=== PATIENT | male | born 1965 | race Caucasian/White ===

== ENCOUNTER 2017-08-04 04:27 | Inpatient (IN) ==
[2017-08-04] MEDS ORDERED: NALOXONE 0.4 MG/ML VIAL IV PRN (04:40)
[2017-08-04] MEDS ORDERED: NALOXONE 0.4 MG/ML VIAL ONE (04:40)
[2017-08-04] MEDS ORDERED: SODIUM CHLORIDE 0.9% 1,000 ML IV STA (04:40)
[2017-08-04] MEDS ORDERED: FLUMAZENIL 0.5 MG/5 ML VIAL IV ONE (04:45)
[2017-08-04] MEDS ORDERED: NALOXONE 0.4 MG/ML VIAL IV STA ×2 (04:47→04:48)
[2017-08-04] MEDS ORDERED: FLUMAZENIL 1 MG/10 ML VIAL IV STA (04:47)
[2017-08-04 05:41] LABS: Basophils # 0.1 10*3/uL (0.0-0.2); Basophils % 0.2 % (0.0-0.8); Eosinophils # 0.1 10*3/uL (0.0-0.87); Eosinophils % 0.2 % (0.00-10.9); Hematocrit 43.9 VOL% (42.0-52.0); Hemoglobin 14.5 GM/DL (14.0-18.0); Immature Granulocytes Absolute 0.24 #; Lymphocytes # 1.9 10*3/uL (1.4-4.0); Lymphocytes % 7.7 % (21.2-54.2); Mean Corpuscular Hemoglobin 28 PG (27-34); Mean Corpuscular Volume 85.1 FL (87-102); Mean Platelet Volume 11.2 FL (9.6-12.0); Monocytes # 1.2 10*3/uL (0.11-0.8); Monocytes % 5.1 % (1.7-12.7); Neutrophils # 20.8 10*3/uL (1.4-7.4); Neutrophils % 85.8 % (38.7-73.9); Platelet Count 297 T/CUMM (130-400); Red Blood Count 5.16 MC/CUMM (3.8-5.5); Red Cell Distribution Width 13.2 % (9.3-17.3); White Blood Count 24.3 T/CUMM (4-12)
[2017-08-04 05:48] LABS: Albumin 3.4 G/DL (3.4-5.0); Bilirubin,Total 0.5 MG/DL (0.2-1.0); Calcium 8.5 MG/DL (8.5-10.1); Osmolality,Calculated 282.5 MOS/KG (273-304); Potassium 4.3 MMOL/L (3.5-5.1); Total Protein 7.1 G/DL (6.4-8.3)
[2017-08-04 06:40] LABS: VBG Base Excess -2.4 MEQ/L (0-4); VBG HCO3 22.4 MEQ/L (24-28); VBG Oxygen Saturation 98.6 %; VBG PCO2 50.2 MMHG (41-51); VBG PH 7.302
[2017-08-04 06:54] LABS: Amorphous Crystals,Urine Occasional /HPF (Few); Apearance,Urine Slightly Hazy (Clear); Bacteria,Urine Occasional /HPF (Few); Bilirubin,Urine Negative (Negative); Blood, Urine Small mg/dL (Negative); Glucose,Urine (UA) Negative (Negative); Hyaline Casts,Urine 12 /LPF (0-3); Ketones,Urine Negative (Negative); Mucus,Urine Occasional /LPF (Occasional); Nitrite,Urine Negative (Negative); Protein,Urine 30 MG/DL; RBC,Urine 2 /HPF (0-4); Squamous Epithelial Cell,Urine Occasional /HPF (0-10); Urine Color Yellow (Yellow); Urine Specific Gravity 1.018 (1.001-1.035); Urine Urobilinogen < 2.0 EU/DL (0.2-1.0); WBC,Urine 5 /HPF (0-6)
[2017-08-04 07:06] LABS: Barbiturates Screen,Urine Negative (Negative); Benzodiazepines Screen,Urine Negative (Negative); Cannabinoid Screen,Urine Negative (Negative); Opiate Screen,Urine Negative (Negative); Phencyclidine Screen,Urine Negative (Negative)
[2017-08-04] MEDS ORDERED: ACETAMINOPHEN 325 MG TABLET PO PRN (07:42)
[2017-08-04] MEDS ORDERED: ALBUTEROL 2.5 MG/3 ML NEB RESP TX PRN (07:42)
[2017-08-04] MEDS ORDERED: NICOTINE 21 MG/24 HR PATCH TRANSDERM PRN (07:42)
[2017-08-04 07:46] LABS: Hypochromasia Slight; Lymphocytes 8 % (20-55); Platelet Estimate Adequate; Segmented Neutrophils 88 % (50-85); Total Cells Counted 100
[2017-08-04] MEDS: LACTATED RINGERS 1,000 ML IV SCH ×2 (08:24→17:52)
[2017-08-04 08:35] LABS: ABG Base Excess -1.6 MMOL/L (-2.5-2.5); ABG Oxygen Saturation 96.1 % (95-100); ABG PCO2 45.7 MM HG (35-48); ABG PH 7.339 (7.35-7.45); ABG PO2 86.5 MM HG (80-95); ABG TCO2 21.3 MMOL/L (23-27); Allen Test Positive
[2017-08-04] MEDS ORDERED: ONDANSETRON 4 MG/2 ML VIAL IV PRN (08:35)
[2017-08-04] MEDS ORDERED: PANTOPRAZOLE 40 MG TABLET PO SCH (09:00)
[2017-08-04] MEDS ORDERED: ALBUTEROL/IPRATROPIUM 3 ML NEB RESP TX PRN (09:18)
[2017-08-04] MEDS ORDERED: cefTRIAXone 1,000 MG in SODIUM CHLORIDE 0.9% 100 ML IV SCH (09:30)
[2017-08-04] MEDS ORDERED: AZITHROMYCIN INJ 500 MG in SODIUM CHLORIDE 0.9% 250 ML IV SCH (10:00)
[2017-08-04] MEDS ORDERED: PIPERACILLIN/TAZOBACTAM 3,375 MG in SODIUM CHLORIDE 0.9% 100 ML IV SCH (14:30)
[2017-08-04 15:12] LABS: Barbiturates Screen,Urine Negative (Negative); Benzodiazepines Screen,Urine Negative (Negative); Cannabinoid Screen,Urine Negative (Negative); Opiate Screen,Urine Negative (Negative); Phencyclidine Screen,Urine Negative (Negative)
[2017-08-04 18:04] VITALS: BP 127/69
[2017-08-06] MEDS ORDERED: INFLUENZA VIRUS VACCINE 0.5 ML SYRINGE IM ONE (08:12)
== END 2017-08-04 18:20 | disposition left against medical advice (07) | DRG 179 ==
LOC: N.ED 04:27 → N.EDINP 07:00 → N.ICU 07:50
PROVIDERS: ADMIT Internal Medicine; ATTEND Internal Medicine